=== PATIENT | male | born 1950 | race Caucasian/White ===

== ENCOUNTER 2016-12-09 10:31 | Inpatient (IN) | payer BC, OTHER ==
--- NOTE | 2016-12-09 10:34 | EDPHY ---
H & P Time Seen by Provider: 12/09/16 10:34 - Personal History Tetanus Vaccine Date: >10 YRS - Medical/Surgical History Hx Diabetes: No Other PMH: vasovagal syndrome w/pain. BPH - Social History Smoking Status: Never smoked Constitutional: Initial Vital Signs Temperature (C) 36.3 C 12/09/16 10:39 Heart Rate 75 12/09/16 10:39 Respiratory Rate 18 12/09/16 10:39 Blood Pressure 139/98 H 12/09/16 10:39 O2 Sat (%) 93 12/09/16 10:39 O2 Delivery Mode Nasal Cannula O2 (L/minute) 2 Allergies/Adverse Reactions: Penicillins Allergy (Mild, Verified 11/01/16 10:10) Rash Home Medications: Medication Instructions Recorded Aspirin [Aspirin 81mg (*)] 81 mg PO DAILY 12/09/16 Gabapentin [Neurontin 300 MG (*)] 300 mg PO TID 12/09/16 Hydrocodone/Acetaminophen 1 each PO Q4-6PRN PRN 12/09/16 [Hydrocodon-Acetaminoph 7.5-325] Ibuprofen [Motrin (*)] 600 mg PO Q4-6PRN PRN 12/09/16 Multivitamins [Multivitamin (*)] 1 each PO DAILY 12/09/16 Tamsulosin HCl [Flomax 0.4 MG (*)] 0.8 mg PO DAILY 12/09/16 Medical Decision Making ED Course/Re-evaluation: CHIEF COMPLAINT: Back pain, leg pain. HISTORY OF PRESENT ILLNESS: This is a 66-year-old male status post L5 cyst drainage by interventional radiology presenting via EMS. He was placed on Gabapentin and Vicodin after the procedure. He was initially able to walk on his own pain-free for 5 minutes at a time before the pain became too intense down his left leg. He describes the pain as being in his buttock, posterior knee , and foot. He was initially getting better but starting yesterday, the pain became constant without the normal relief he was usually able to get. He denies fever, chills, incontinence, or other complaints. REVIEW OF SYSTEMS: A 10 point review of systems was performed and is negative with the exception of the elements mentioned in the history of present illness. PHYSICAL EXAM: HR, BP, O2 Sat, RR. Temp noted General Appearance: Alert, well hydrated, appropriate, and non-toxic appearing. Head: Atraumatic without scalp tenderness or obvious injury Eyes: Pupils equal, round, reactive to light and accommodation, EOMI, no trauma , no injection. Ears: Clear bilaterally, no perforation, normal landmarks Nose: Atraumatic, no rhinorrhea, clear. Throat: There is no erythema or exudates, no lesions, normal tonsils, mucus membranes moist. Neck: Supple, 2+ carotid upstroke, nontender, no lymphadenopathy. Respiratory: No retractions, no distress, no wheezes, and no accessory muscle use. Lungs are clear to auscultation bilaterally. Cardiovascular: Regular rate and rhythm, no murmurs, rubs, or gallops. Bilateral carotid, radial, dorsalis pedis, and posterior tibial pulses intact. Good capillary refill all extremities. Gastrointestinal: Abdomen is soft, nontender, non-distended, no masses, no rebound, no guarding, no peritoneal signs. Musculoskeletal: Normal active ROM of all extremities, atraumatic. Neurological: Alert, appropriate, and interactive. The patient has normal DTRs and non-focal cranial nerves, motor, sensory, and cerebellar exam. Skin: No rashes, good turgor, no nodules on palpation. Past medical history:Synovial cyst of lumbar spine. Past surgical history:L5 cyst drainage. Family history:Non-contributory. Social history:Here alone. DIAGNOSTICS/PROCEDURES/CRITICAL CARE TIME: Study: MRI of the: L-Spine. Indication: Neurologic, Trauma Results: Return of synovial cyst. The study was read by the radiologist. I viewed the images myself on the PACS system. The 12 lead EKG was interpreted by myself. See hard copy and/or "tracemaster" electronic copy for interpretation. Sinus rhythm, no acute changes. DIFFERENTIAL DIAGNOSIS: The differential diagnosis for the patient's back pain included but was not limited to musculo-skeletal pain, epidural abscess, herniated disk, spinal fracture, and intra-abdominal causes including urinary system. MEDICAL DECISION MAKING: This 66-year-old male is status post an L5 cyst drainage by Dr. Ma a few days ago. His pain was initially getting better but became constant yesterday. This is associated with a pain down his left leg he describes as being in his buttock , knee, and foot. He has no fevers or chills to indicate systemwide infection. L -spine MRI ordered to rule-out reemergence of the cyst or infection. 1230: MRI reported to me by staff radiologist shows a return of the synovial cyst. 1233: Consulted with Dr. Hernandez, neurosurgery. He will operate on the cyst if the patient wants, or IR can drain it again. I discussed this with the patient. He would like to be admitted for surgery. Preoperative labs, EKG, and chest x- ray ordered. 1259: Consulted with Antoinette Ibanez, hospitalist. She accepts admission for Dr. Murray. - Data Points Laboratory Results: Laboratory Results 12/09/16 12:01 12/09/16 10:30 12/09/16 12/09/16 12:01 10:30 WBC 7.90 10^3/uL (3.80-9.50) RBC 5.23 10^6/uL (4.40-6.38) Hgb 16.4 g/dL (13.7-17.5) Hct 48.6 % (40.0-51.0) MCV 92.9 fL (81.5-99.8) MCH 31.4 pg (27.9-34.1) MCHC 33.7 g/dL (32.4-36.7) RDW 12.1 % (11.5-15.2) Plt Count 242 10^3/uL (150-400) MPV 10.5 fL (8.7-11.7) Neut % (Auto) 61.5 % (39.3-74.2) Lymph % (Auto) 25.1 % (15.0-45.0) [place] % (Auto) 10.3 % (4.5-13.0) Eos % (Auto) 2.3 % (0.6-7.6) Baso % (Auto) 0.5 % (0.3-1.7) Nucleat RBC Rel Count 0.0 % (0.0-0.2) Absolute Neuts (auto) 4.87 10^3/uL (1.70-6.50) Absolute Lymphs (auto) 1.98 10^3/uL (1.00-3.00) Absolute Monos (auto) 0.81 H 10^3/uL (0.30-0.80) Absolute Eos (auto) 0.18 10^3/uL (0.03-0.40) Absolute Basos (auto) 0.04 10^3/uL (0.02-0.10) Absolute Nucleated RBC 0.00 10^3/uL (0-0.01) Immature Gran % 0.3 % (0.0-1.1) Immature Gran # 0.02 10^3/uL (0.00-0.10) PT 12.8 SEC (12.0-15.0) INR 0.97 (0.83-1.16) APTT 26.9 SEC (23.0-38.0) Sodium 140 mEq/L (134-144) Potassium 4.6 mEq/L (3.5-5.2) Chloride 108 mEq/L (97-110) Carbon Dioxide 26 mEq/l (22-31) Anion Gap 6 mEq/L (8-16) BUN 26 H mg/dL (7-23) Creatinine 0.9 mg/dL (0.7-1.3) Estimated GFR > 60 Glucose 91 mg/dL (70-100) Calcium 9.1 mg/dL (8.5-10.4) Medications Given: Discontinued Medications Fentanyl (Sublimaze) 100 mcg IVP ONCE ONE Stop: 12/09/16 12:16 Last Admin: 12/09/16 12:30 Dose: 100 mcg Ondansetron HCl (Zofran) 4 mg IVP EDNOW ONE Stop: 12/09/16 12:30 Last Admin: 12/09/16 12:31 Dose: 4 mg Departure - Departure Disposition: [facility] Acute Clinical Impression: Synovial cyst of lumbar spine Condition: Fair Report Scribed for: Derik Cornejo Report Scribed by: Dexter Elkins Date of Report: 12/09/16 Time of Report: 10:49
[2016-12-09] MEDS ORDERED: GADOBUTROL 10 ML VIAL IVP ONE (10:59)
[2016-12-09 11:42] LABS: ANION GAP 6 mEq/L (8-16); CALCIUM 9.1 mg/dL (8.5-10.4); CARBON DIOXIDE 26 mEq/l (22-31); CHLORIDE 108 mEq/L (97-110); CREATININE 0.9 mg/dL (0.7-1.3); GLOMERULAR FILTRATION RATE > 60; GLUCOSE 91 mg/dL (70-100); POTASSIUM 4.6 mEq/L (3.5-5.2); SODIUM 140 mEq/L (134-144)
[2016-12-09] MEDS ORDERED: fentaNYL 100 MCG/2 ML INJ IVP ONE (12:15)
[2016-12-09] MEDS ORDERED: ONDANSETRON 4 MG/2 ML VIAL ONE ×2 (12:20→16:46)
[2016-12-09] MEDS ORDERED: ONDANSETRON 4 MG/2 ML VIAL IVP ONE ×2 (12:29→16:53)
[2016-12-09 12:52] LABS: % IMMATURE GRANULYOCYTES 0.3 % (0.0-1.1); ABSOLUTE IMMATURE GRANULOCYTES 0.02 10^3/uL (0.00-0.10); ADD DIFF? NO; ADD MORPH? NO; ADD SCAN? NO; ATYPICAL LYMPHOCYTE FLAG 0 (0-99); FRAGMENT RBC FLAG 0 (0-99); HEMATOCRIT 48.6 % (40.0-51.0); HEMOGLOBIN 16.4 g/dL (13.7-17.5); LEFT SHIFT FLG 0 (0-99); LIPEMIA HEMOLYSIS FLAG 80 (0-99); MEAN CELL HEMOGLOBIN 31.4 pg (27.9-34.1); MEAN CELL HEMOGLOBIN CONCENTR. 33.7 g/dL (32.4-36.7); MEAN CELL VOLUME 92.9 fL (81.5-99.8); MEAN PLATELET VOLUME 10.5 fL (8.7-11.7); PLATELET CLUMPS FLAG 0 (0-99); PLATELET COUNT 242 10^3/uL (150-400); RED BLOOD CELL COUNT 5.23 10^6/uL (4.40-6.38); RED CELL DISTRIBUTION WIDTH 12.1 % (11.5-15.2)
[2016-12-09 12:56] LABS: INR 0.97 (0.83-1.16); PROTIME(PATIENT) 12.8 SEC (12.0-15.0)
[2016-12-09 12:57] LABS: APTT 26.9 SEC (23.0-38.0)
--- NOTE | 2016-12-09 13:13 | CPEKG ---
Heart Rate: 66 RR Interval: 909 P-R Interval: 172 QRSD Interval: 88 QT Interval: 428 QTC Interval: 449 P Whitfield: 57 QRS Whitfield: -58 T Wave Whitfield: 25 EKG Severity - ABNORMAL ECG - EKG Impression: SINUS RHYTHM EKG Impression: PROBABLE LEFT ATRIAL ABNORMALITY EKG Impression: LEFT ANTERIOR FASCICULAR BLOCK Electronically Signed By: Derik Cornejo 09-Dec-2016 13:33:18
[2016-12-09] MEDS ORDERED: HYDROmorphONE/DILAUDID 1 MG/ML SYR ONE (13:44)
--- NOTE | 2016-12-09 13:52 | MR ---
MRI Lumbar Spine Without and With Contrast History: Back pain. Left radiculopathy. History of synovial cyst aspiration and corticosteroid inject ion. Comparison: Injection 10 November 2016. MRI November 01, 2016. Technique: MRI is performed of the lumbar spine using a 1.5 Rima MRI system. Sagittal and axial imag ing was obtained with standard imaging sequences. Images were obtained pre- and postintravenous contr ast, 9 mL Gadavist. Findings: No significant bone marrow abnormality is visualized. No evidence for compression fracture. Disk heights are maintained. Conus is visualized at L1 and is unremarkable. No evidence of abnormal enhancement of the conus or cauda equina. Incidental note is made of a renal cortical cyst off the inferior pole of the right kidney measuring 2 cm. L1-L2 level unremarkable. L2-L3 level demonstrates a mild broad-based annular bulge causing mild spinal canal and bilateral jeffrey ral foraminal narrowing. No significant change. L3-L4 level demonstrates a mild broad-based annular bulge. Mild facet and ligamentum flavum hypertrop hy is seen bilaterally. This is causing mild spinal canal and mild bilateral neural foraminal narrowi ng, unchanged. L4-L5 level demonstrates a mild broad-based annular bulge. Moderate facet arthropathy is seen bilater ally, more severe on the left. There is bone marrow edema and fluid distention and pericapsular enhan cement of the left facet joint. Extending from the left facet joint is a synovial cyst extending slig htly caudally into the medial aspect of the left neural foramen compressing the L5 nerve root. It is similar in size and appearance to the prior exam. There is mild bilateral lateral recess narrowing an d mild bilateral neural foraminal narrowing, unchanged. L5-S1 level demonstrates mild facet arthropathy causing no significant encroachment. Impression: Multilevel degenerative disk and degenerative joint disease of the lumbar spine. The most significant level is L4-L5 where there is more severe facet arthropathy on the left with a synovial cyst extending to the medial aspect of the left neural foramen compressing the L5 nerve root as above . Results called to Dr. Derik Cornejo.
--- NOTE | 2016-12-09 14:11 | DX ---
AP and lateral chest x-ray 1230 hours. History: Chest pain with shortness of breath. Recent lumbar procedure. Findings: Comparison to January 02, 2012. Heart size and pulmonary vasculature remain within normal limits. There is no consolidation, effusion , or pneumothorax. There is poor inspiration with mild dependent atelectatic changes are suspected at the lung bases posteriorly. Osseous structures are unchanged. Mild atherosclerotic calcification is noted at the aortic arch level. Impression: 1. Mild dependent atelectatic changes suspected at the lung bases posteriorly.
[2016-12-09] MEDS ORDERED: HYDROmorphONE/DILAUDID 1 MG/ML SYR IVP ONE ×2 (14:15→16:44)
[2016-12-09] MEDS ORDERED: NS 1,000 ML IV ONE (17:05)
[2016-12-09] MEDS ORDERED: HYDROmorphONE/DILAUDID 1 MG/ML SYR IVP PRN (17:07)
[2016-12-09] MEDS ORDERED: LORazepam 0.5 MG TAB PO PRN (17:07)
[2016-12-09] MEDS ORDERED: ACETAMINOPHEN 325 MG TAB PO PRN (17:07)
[2016-12-09] MEDS ORDERED: oxyCODONE IR 5 MG TAB PO PRN (17:07)
[2016-12-09] MEDS ORDERED: IBUPROFEN 200 MG TAB PO PRN (17:09)
[2016-12-09] MEDS ORDERED: NS 1,000 ML IV SCH (17:15)
--- NOTE | 2016-12-09 17:17 | PDGENHP ---
History and Physical - Chief Complaint back and leg pain - History of Present Illness 66 yo M with PMH of L5 synovial cyst s/p drainage by IR returning with increased pain present in buttocks and radiating down his left leg, limiting his ability to walk. Pain is severe, worse with ambulation, not alleviated by much of anything at this point and essentially constant. MRI performed in the ER showing synovial cyst affecting L5 nerve root. Plan for nsg intervention in am and pain mgmt overnight tonight. No other issues including bowel or bladder incontinence, fever or chills etc. History Information - Allergies/Home Medication List Allergies/Adverse Reactions: Penicillins Allergy (Mild, Verified 11/01/16 10:10) Rash Home Medications: Aspirin [Aspirin 81mg (*)] 81 mg PO DAILY 12/09/16 [Last Taken 12/08/16] Gabapentin [Neurontin 300 MG (*)] 300 mg PO TID 12/09/16 [Last Taken 12/09/16 07 :30 1 CAP] Hydrocodone/Acetaminophen [Hydrocodon-Acetaminoph 7.5-325] 1 each PO Q4-6PRN PRN 12/09/16 [Last Taken 12/09/16 07:30 1 TAB] Ibuprofen [Motrin (*)] 600 mg PO Q4-6PRN PRN 12/09/16 [Last Taken 12/09/16 06: 30 600MG] Multivitamins [Multivitamin (*)] 1 each PO DAILY 12/09/16 [Last Taken Unknown] Tamsulosin HCl [Flomax 0.4 MG (*)] 0.8 mg PO DAILY 12/09/16 [Last Taken Unknown] I have personally reviewed and updated: family history, medical history, social history, surgical history - Past Medical History Additional medical history: BPH - Surgical History Additional surgical history: shoulder, knee, elbow, neck surgery - Family History Positive for: non-pertinent - Social History Smoking Status: Never smoked Alcohol Use: Occasionally Drug Use: None Additional social history: Review of Systems ROS: 10pt was reviewed & negative except for what was stated in HPI & below Physical Exam Temp Pulse Resp BP Pulse Ox 36.3 C 66 18 126/78 H 96 12/09/16 10:39 12/09/16 17:00 12/09/16 17:00 12/09/16 17:00 12/09/16 17:00 O2 (L/minute) 2 Constitutional: appears nourished, uncomfortable Eyes: PERRL Ears, Nose, Mouth, Throat: moist mucous membranes Cardiovascular: regular rate and rhythym, no murmur, rub, or gallop Respiratory: no respiratory distress Gastrointestinal: normoactive bowel sounds Genitourinary: no bladder fullness Skin: warm, normal color Neurologic: AAOx3 Psychiatric: interacting appropriately, not anxious Lab Data & Imaging Review 12/09/16 12:01 12/09/16 10:30 WBC 7.90 10^3/uL (3.80-9.50) 12/09/16 12:01 RBC 5.23 10^6/uL (4.40-6.38) 12/09/16 12:01 Hgb 16.4 g/dL (13.7-17.5) 12/09/16 12:01 Hct 48.6 % (40.0-51.0) 12/09/16 12:01 MCV 92.9 fL (81.5-99.8) 12/09/16 12:01 MCH 31.4 pg (27.9-34.1) 12/09/16 12:01 MCHC 33.7 g/dL (32.4-36.7) 12/09/16 12:01 RDW 12.1 % (11.5-15.2) 12/09/16 12:01 Plt Count 242 10^3/uL (150-400) 12/09/16 12:01 MPV 10.5 fL (8.7-11.7) 12/09/16 12:01 Neut % (Auto) 61.5 % (39.3-74.2) 12/09/16 12:01 Lymph % (Auto) 25.1 % (15.0-45.0) 12/09/16 12:01 [place] % (Auto) 10.3 % (4.5-13.0) 12/09/16 12:01 Eos % (Auto) 2.3 % (0.6-7.6) 12/09/16 12:01 Baso % (Auto) 0.5 % (0.3-1.7) 12/09/16 12:01 Nucleat RBC Rel Count 0.0 % (0.0-0.2) 12/09/16 12:01 Absolute Neuts (auto) 4.87 10^3/uL (1.70-6.50) 12/09/16 12:01 Absolute Lymphs (auto) 1.98 10^3/uL (1.00-3.00) 12/09/16 12:01 Absolute Monos (auto) 0.81 10^3/uL (0.30-0.80) H 12/09/16 12:01 Absolute Eos (auto) 0.18 10^3/uL (0.03-0.40) 12/09/16 12:01 Absolute Basos (auto) 0.04 10^3/uL (0.02-0.10) 12/09/16 12:01 Absolute Nucleated RBC 0.00 10^3/uL (0-0.01) 12/09/16 12:01 Immature Gran % 0.3 % (0.0-1.1) 12/09/16 12:01 Immature Gran # 0.02 10^3/uL (0.00-0.10) 12/09/16 12:01 PT 12.8 SEC (12.0-15.0) 12/09/16 12:01 INR 0.97 (0.83-1.16) 12/09/16 12:01 APTT 26.9 SEC (23.0-38.0) 12/09/16 12:01 Sodium 140 mEq/L (134-144) 12/09/16 10:30 Potassium 4.6 mEq/L (3.5-5.2) 12/09/16 10:30 Chloride 108 mEq/L (97-110) 12/09/16 10:30 Carbon Dioxide 26 mEq/l (22-31) 12/09/16 10:30 Anion Gap 6 mEq/L (8-16) 12/09/16 10:30 BUN 26 mg/dL (7-23) H 12/09/16 10:30 Creatinine 0.9 mg/dL (0.7-1.3) 12/09/16 10:30 Estimated GFR > 60 12/09/16 10:30 Glucose 91 mg/dL (70-100) 12/09/16 10:30 Calcium 9.1 mg/dL (8.5-10.4) 12/09/16 10:30 Visualized and Interpreted Chest x-ray results: Yes Chest X-Ray results: no infiltrate, other (mild dependent atelectasis) Visualized and Interpreted imaging results: Yes Interpretation: lumbar spine MRI with synovial cyst compressing l5 nerve root Visualized and Interpreted EKG results: Yes EKG Interpretation: Positive for: normal sinsus rhythm EKG additional interpertation: lafb Assessment & Plan Assessment: Synovial cyst of lumbar spine (Acute) 66 yo M with recent injection for synovial cyst presenting with lumbar radiculopathy # lumbar radiculopathy: related to synovial cyst impinging on L5 nerve root, NSG to intervene in am. For tonight, pain mgmt with prn opiates and benzos. PT/ OT to be involved. # gait instability: related to above, tx as above, ambulate with assist for now # bph: continue tamsulosin # pain: as above, prn dilaudid, oxycodone, valium # dispo: observation, likely can dc home in am Patient new to my care. Old records reviewed and summarized as above.
[2016-12-09] MEDS: HYDROCODONE/APAP 10/325 TAB PO PRN (17:59)
[2016-12-09] MEDS: HYDROmorphONE/DILAUDID 1 MG/ML SYR IVP PRN ×2 (18:24→21:12)
[2016-12-09] MEDS: oxyCODONE IR 5 MG TAB PO PRN (20:16)
--- NOTE | 2016-12-09 20:16 | GCON ---
[f rep st] CONSULTATION HISTORY OF PRESENT ILLNESS: The patient is a 66-year-old male who presents to the ED for severe pain in his left buttock, shooting down his left lateral and posterior leg, sometimes extending down arou nd his anterior left villa and into his second and third toes. The pain has been ongoing for quite a while, which has become more severe recently. He has been seen in our clinic in the past, has been d iagnosed with lumbar degenerative disk disease and an L5 nerve compression by synovial cyst coming of f the L4-5 facet joint on the left. The patient initially had a cyst drained at the end of October but gradually his symptoms have returned and have become so severe that they are not managed by his h ome medications; therefore, he presented here in the ER for pain control. An MRI reviewed showed ret urn of the cyst and continued nerve root compression of the L5 nerve. PAST MEDICAL HISTORY: Includes urinary retention. PAST SURGICAL HISTORY: Includes prior cervical back surgery in 2011, recent gallbladder removal. FAMILY HISTORY: Degenerative spine disease. Father had heart disease. SOCIAL HISTORY: The patient lives with his . He has a 27-year-old son. He is retired. He is a [employer] avid golfer. The patient does not use tobacco. He drinks 1-2 drinks a day. He uses marijuana for pain control. MEDICATIONS: Patient takes daily baby aspirin, multivitamins, Flomax, and ibuprofen regularly. Rece ntly, he has also been taking Gatzke and edible marijuana for pain control. ALLERGIES: Mild rash to penicillin. REVIEW OF SYSTEMS: Negative except as stated above. PHYSICAL EXAMINATION: NEUROLOGIC: The patient is alert and oriented x3. He is currently in no appa rent distress. His cranial nerves are grossly intact. Motor strength on his bilateral lower extremi ties is 5/5 throughout except extensor hallucis longus 4/5 on the left side. His sensation is intact to light touch throughout. He has no deficiency to balance or gait. LABORATORY DATA: Repeat MRI from today shows multilevel degenerative disk and degenerative joint dis ease, particularly at the L4-L5 level of facet arthropathy is noted with a left synovial cyst saeed sing the L5 nerve root. ASSESSMENT/PLAN: A healthy 66-year-old male with degenerative disk disease, L5 nerve root compressio n on the left and neuropathy. The patient has been seen at our clinic and has been treated conservat ively with the synovial cyst drainage in the past and he has failed this. At this point, given his l evel of pain, the patient is requesting spine surgery for fusion and removal of the cyst. Dr. Hernandez' s plan is to evaluate the patient and tentatively schedule him for the OR tomorrow for an L4-5 TLIF a nd fusion. The patient will be admitted to the medicine service for pain control until that time. T he patient may be given a regular diet but should be made n.p.o. After midnight. He should not recei ve any more NSAIDs and his aspirin should be held tomorrow. In addition, I would recommend placing t he patient in SCDs and holding DVT prophylaxis until postop day 1. /[id number]/MODL
[2016-12-09] MEDS: GABAPENTIN 300 MG CAP PO SCH (21:12)
[2016-12-09] MEDS: ONDANSETRON 4 MG/2 ML VIAL IVP PRN (21:19)
[2016-12-09] MEDS: PROMETHAZINE HCL 25 MG/ML INJ IVP PRN (22:54)
[2016-12-10] MEDS: HYDROmorphONE/DILAUDID 1 MG/ML SYR IVP PRN ×2 (02:13→13:05)
[2016-12-10] MEDS: HYDROCODONE/APAP 10/325 TAB PO PRN (02:13)
[2016-12-10] MEDS ORDERED: THROMBIN (RECOMBINANT) 5,000 UNIT VIAL TP ONE (04:11)
[2016-12-10] MEDS ORDERED: BACITRACIN 50,000 UNITS/10 ML SYR IRR ONE (04:11)
[2016-12-10] MEDS ORDERED: SKIN ADHESIVE (DERMABOND) 1 EACH TP ONE (04:11)
[2016-12-10] MEDS ORDERED: BUPIVACAINE/EPI 0.25% 30 ML SDV ONE (04:11)
[2016-12-10 04:59] LABS: % IMMATURE GRANULYOCYTES 0.1 % (0.0-1.1); ABSOLUTE IMMATURE GRANULOCYTES 0.01 10^3/uL (0.00-0.10); ADD DIFF? NO; ADD MORPH? NO; ADD SCAN? NO; ATYPICAL LYMPHOCYTE FLAG 0 (0-99); FRAGMENT RBC FLAG 0 (0-99); HEMATOCRIT 45.4 % (40.0-51.0); HEMOGLOBIN 15.3 g/dL (13.7-17.5); LEFT SHIFT FLG 0 (0-99); LIPEMIA HEMOLYSIS FLAG 80 (0-99); MEAN CELL HEMOGLOBIN 32.3 pg (27.9-34.1); MEAN CELL HEMOGLOBIN CONCENTR. 33.7 g/dL (32.4-36.7); MEAN CELL VOLUME 95.8 fL (81.5-99.8); MEAN PLATELET VOLUME 10.1 fL (8.7-11.7); PLATELET CLUMPS FLAG 0 (0-99); PLATELET COUNT 229 10^3/uL (150-400); RED BLOOD CELL COUNT 4.74 10^6/uL (4.40-6.38); RED CELL DISTRIBUTION WIDTH 12.2 % (11.5-15.2)
[2016-12-10 05:18] LABS: ANION GAP 7 mEq/L (8-16); CALCIUM 8.9 mg/dL (8.5-10.4); CARBON DIOXIDE 26 mEq/l (22-31); CHLORIDE 106 mEq/L (97-110); CREATININE 0.8 mg/dL (0.7-1.3); GLOMERULAR FILTRATION RATE > 60; GLUCOSE 105 mg/dL (70-100); POTASSIUM 4.6 mEq/L (3.5-5.2); SODIUM 139 mEq/L (134-144)
[2016-12-10] MEDS ORDERED: fentaNYL 100 MCG/2 ML INJ ONE ×2 (07:49→12:01)
[2016-12-10] MEDS ORDERED: fentaNYL 250 MCG/5 ML INJ ONE (07:53)
[2016-12-10] MEDS ORDERED: PROPOFOL/EMULSION 500 MG/50 ML BOTTLE IV ONE ×2 (07:53)
[2016-12-10] MEDS ORDERED: CEFAZOLIN 2 GM/DEXTROSE/100 ML BAG IV ONE (07:59)
[2016-12-10] MEDS ORDERED: ALBUMIN 5% 250 ML BOTTLE IV ONE (08:06)
[2016-12-10] MEDS ORDERED: MIDAZOLAM 2 MG/2 ML VIAL ONE (08:09)
[2016-12-10] MEDS ORDERED: methylPREDNISolone SOD SUCC 125 MG/2 ML VIAL ONE (08:10)
[2016-12-10] MEDS ORDERED: ONDANSETRON 4 MG/2 ML VIAL ONE (08:10)
[2016-12-10] MEDS ORDERED: ROCURONIUM 50 MG/5 ML VIAL ONE ×2 (08:10→09:12)
[2016-12-10] MEDS ORDERED: GLYCOPYRROLATE 0.2 MG/1 ML VIAL ONE (08:10)
[2016-12-10] MEDS ORDERED: METOCLOPRAMIDE 10 MG/2 ML VIAL ONE (08:10)
[2016-12-10] MEDS: MULTIVITAMINS 1 EACH TAB PO SCH (08:56)
[2016-12-10] MEDS: TAMSULOSIN HCL 0.4 MG CAP PO SCH ×2 (08:57→16:10)
[2016-12-10] MEDS ORDERED: DIAZEPAM 10 MG/2 ML SYR ONE (09:01)
[2016-12-10] MEDS ORDERED: morphINE PF 5 MG/10 ML INJ ONE (09:06)
[2016-12-10] MEDS ORDERED: CALCIUM CHLORIDE 1 GM/10 ML INJ ONE (09:14)
[2016-12-10] MEDS ORDERED: NEOSTIGMINE METHYLSULFATE 5 MG/5 ML SYR ONE (09:24)
[2016-12-10] MEDS ORDERED: epHEDrine SULFATE 10 MG/ML SYR ONE ×2 (11:04)
[2016-12-10] MEDS: GABAPENTIN 300 MG CAP PO SCH ×3 (11:34→20:35)
--- NOTE | 2016-12-10 11:50 | POSTOPPROG ---
Post Op Note Date of Operation: 12/10/16 Surgeon: Darren Hernandez Director Of Religious Activities: MCKINLEY Moss, PAC Anesthesia: GET(General Endotracheal) Pre-op Diagnosis: lumbar radiculopathy, synovial cyst Post-op Diagnosis: lumbar radiculopathy, synovial cyst Indication: lumbar radiculopathy, synovial cyst Procedure: Right L4/5 synovial cyst resection, TLIF/PSF Inf/Abcess present in the surg proc area at time of surgery?: No EBL: 200cc Drains: Yohana PINTO Addendum - Addendum .: S: Low back pain O: NAD A&Ox3 MAEx4 5/ and equal in BUE and BLE Plan: -Optimize pain management -PT/OT -DVT prophx: TEDs, SCDs, Lovenox okay POD#1 -Post op xrays pending -Advance diet as tolerated -Please notify NS with any change in neuro/motor exam
[2016-12-10] MEDS ORDERED: DIAZEPAM 10 MG/2 ML SYR IVP PRN (11:51)
[2016-12-10] MEDS ORDERED: LACTULOSE 20 GM/30 ML UDCUP PO PRN (11:51)
[2016-12-10] MEDS ORDERED: MAGNESIUM HYDROXIDE 30 ML UDCUP PO PRN (11:51)
[2016-12-10] MEDS ORDERED: DIAZEPAM 5 MG TAB PO PRN (11:51)
[2016-12-10] MEDS ORDERED: BISACODYL 10 MG SUPP PR PRN (11:51)
[2016-12-10] MEDS ORDERED: morphINE PF 5 MG/10 ML INJ IT ONE (12:00)
[2016-12-10] MEDS ORDERED: morphINE PF 1 MG/2 ML AMP IT ONE (12:00)
--- NOTE | 2016-12-10 12:16 | DX ---
Fluoroscopy Provided for Lumbar Spine Surgery, 8:14 a.m. Indication: Lumbar cyst removal. Fluoroscopy time: 8.37 seconds. Dose: 18.17 mGy Two O-arm spins were utilized yielding 219.62 DLP( mGycm). Technique: Two intraoperative spot films were submitted. Findings: New posterior fusion construct extends from L4 to L5. Impression: Fluoroscopy provided for lumbar spine fusion.
[2016-12-10] MEDS: NS W/ 20 KCl/L 1,000 ML IV SCH (13:13)
[2016-12-10] MEDS ORDERED: PROPARACAINE 0.5% 15 ML OPHT DROP EACHEYE ONE (13:45)
--- NOTE | 2016-12-10 16:42 | HOSPPROG ---
Hospitalist Progress Note Assessment/Plan: Assessment: 66-year-old male presenting with synovial cyst resulting in acute lumbar radiculopathy requiring surgery Plan: 1. Synovial cyst with lumbar radiculopathy. Acute, postop day 0 status post TLIF/PSF by Dr. Hernandez -MRI demonstrated L4-L5 with left nerve root impingement -postoperative weight-bearing status and care under the direction neurosurgery -continue pain medications and bowel regimen 2. Eye pain. Acute, most likely secondary to direct trauma sustained in PACU with patient rubbing his eye as he awakened from anesthesia -I have discussed with patient's anesthesiologist and she has recommended lubricant, topical lidocaine, eye patch -I will reassess this area tomorrow a.m. -the area does not demonstrate any evidence of orbital cellulitis or acute closed angle glaucoma on physical exam 3. BPH. Monitor for urine output Diet. Regular Prophylaxis. High risk patient, hold on pharmacologic prophylaxis until 48 hours after surgery Code. Full Disposition. Anticipated discharge is 12/11/2016, upgraded to inpatient admission status for neurosurgical procedure requiring postoperative care, complicated by acute eye pain. Subjective: Patient reports right-sided eye pain Objective: Vital Signs Temp Pulse Resp BP Pulse Ox 36.8 C 84 18 116/68 94 12/10/16 14:18 12/10/16 14:18 12/10/16 14:18 12/10/16 14:18 12/10/16 14:18 12/09/16 12/10/16 12/11/16 05:59 05:59 05:59 Intake Total 750 Output Total 200 Balance 550 PT 12.8 SEC (12.0-15.0) 12/09/16 12:01 INR 0.97 (0.83-1.16) 12/09/16 12:01 - Time Spent With Patient Time Spent with Patient: greater than 35 minutes Time Spent with Patient: Greater than 35 minutes spent on this patients care, greater than 50% of time spent counseling, educating, and coordinating care regarding the above mentioned plan. - Physical Exam Constitutional: no apparent distress, uncomfortable, No not in pain Eyes: other (Right eye has a small capillary hemorrhage along the inferior aspect of the iris, pupil size is normal and symmetric with left comma extraocular movements are completely intact without pain, there is no erythema around the eyelid where the orbit, visual acuity is good and is intact in all visual hanna) Ears, Nose, Mouth, Throat: moist mucous membranes, hearing normal, ears appear normal, no oral mucosal ulcers Cardiovascular: regular rate and rhythym, no murmur, rub, or gallop Respiratory: no respiratory distress, no rales or rhonchi, clear to auscultation Gastrointestinal: normoactive bowel sounds, soft, non-tender abdomen, no palpable masses Neurologic: AAOx3, sensation intact bilaterally Psychiatric: interacting appropriately, not anxious, not encephalopathic, thought process linear ICD10 Worksheet Patient Problems: Problems Problem Status Diagnosed Synovial cyst of lumbar spine Acute
[2016-12-10] MEDS: SENNOSIDES/DOCUSATE SODIUM TAB PO SCH (20:34)
[2016-12-10] MEDS: FAMOTIDINE 20 MG TAB PO SCH (20:35)
[2016-12-10] MEDS ORDERED: FAMOTIDINE 20 MG/NACL 50 ML IV SCH (21:00)
[2016-12-10] MEDS: ONDANSETRON DISINTEGRATING 4 MG TAB PO PRN (22:04)
[2016-12-11] MEDS: ZOLPIDEM TARTRATE 5 MG TAB PO PRN ×2 (01:04→22:47)
[2016-12-11] MEDS ORDERED: FLU VACC TS 2016-17(65YR+)/PF 0.5 ML SYR (FLUZONE HIGH DOSE) IM ONE (05:21)
[2016-12-11] MEDS: HYDROCODONE/APAP 10/325 TAB PO PRN (05:24)
[2016-12-11] MEDS: ACETAMINOPHEN 325 MG TAB PO PRN ×2 (05:24→10:10)
[2016-12-11] MEDS: ONDANSETRON DISINTEGRATING 4 MG TAB PO PRN ×2 (06:10→20:53)
[2016-12-11] MEDS: HYDROmorphONE/DILAUDID 1 MG/ML SYR IVP PRN ×2 (06:58→09:32)
[2016-12-11] MEDS: ONDANSETRON 4 MG/2 ML VIAL IVP PRN (09:24)
[2016-12-11] MEDS: oxyCODONE IR 5 MG TAB PO PRN (10:12)
[2016-12-11] MEDS: TAMSULOSIN HCL 0.4 MG CAP PO SCH (10:13)
[2016-12-11] MEDS: GABAPENTIN 300 MG CAP PO SCH ×3 (10:14→20:48)
[2016-12-11] MEDS: FAMOTIDINE 20 MG TAB PO SCH ×2 (10:14→20:48)
[2016-12-11] MEDS: PROMETHAZINE HCL 25 MG/ML INJ IVP PRN (10:18)
[2016-12-11] MEDS: MULTIVITAMINS 1 EACH TAB PO SCH (10:29)
[2016-12-11] MEDS: SENNOSIDES/DOCUSATE SODIUM TAB PO SCH ×2 (10:29→20:47)
[2016-12-11] MEDS: NS W/ 20 KCl/L 1,000 ML IV SCH (10:47)
--- NOTE | 2016-12-11 10:52 | NEUSURGPN ---
Date of Surgery: 12/10/16 Post Op Day: 1 Assessment/Plan: POD#1 s/p L4-5 TLIF - overall doing well, left leg pain is gone - has had back pain, nausea, and urinary retention (BPH) - had significant eye pain yesterday and thought to have a corneal abrasion, pain is better today - will give two days of celebrex to help with pain control (he should NOT be discharged on this) - LSO brace when ambulating - PT/OT - standing lumbar xrays today - anticipate possible discharge tomorrow Subjective: c/o back pain and headache Objective: AAOx3 leg strength 5/5 at HF, KF/KE, PF/DF wound c/d/i - Physician Patient Seen by : Mary Neurosurgery Physical Exam - Vitals, I&O, Labs I and O 12/10/16 12/11/16 12/12/16 05:59 05:59 05:59 Intake Total 1750 100 Output Total 1700 550 Balance 50 -450 Intake: Oral (ml) 1000 100 IV Intake (ml) 200 IV Infused (ml) 550 Ns 1,000 ml @ 100 mls/hr 50 IV CONT TEDDY Rx#: [id number] NS W/ 20 KCl/L 1,000 ml @ 500 75 mls/hr IV CONT TEDDY Rx #:[id number] Output: Urine (ml) 1350 550 Urinal 600 550 Catheter 750 Estimated Blood Loss (ml) 200 Emesis (ml) 150 Other: Intake Quantity Yes No Sufficient Output Comment Catheter straight cath Number of Voids Urinal 1 1 Bladder Scan Volume (ml) Catheter 705 Number of Emesis 1 Occurrences Vital Signs Temp Pulse Resp BP Pulse Ox 36.8 C 99 20 132/74 H 96 12/11/16 08:00 12/11/16 08:00 12/11/16 08:00 12/11/16 08:00 12/11/16 08:00 ICD10 Worksheet Patient Problems: Problems Problem Status Diagnosed Synovial cyst of lumbar spine Acute
[2016-12-11] MEDS ORDERED: PROMETHAZINE HCL 25 MG TAB PO PRN (11:46)
[2016-12-11] MEDS ORDERED: HYDROmorphONE/DILAUDID 1 MG/ML SYR IVP PRN (11:46)
--- NOTE | 2016-12-11 11:55 | GOP ---
[f rep st] OPERATIVE REPORT DATE OF OPERATION: 12/10/2016 SURGEON: Darren Hernandez MD FIELD AGENT: GERONIMO Pinon PREOPERATIVE DIAGNOSIS: Synovial cyst at L4-5 with significant left L5 radiculopathy. POSTOPERATIVE DIAGNOSIS: Synovial cyst at L4-5 with significant left L5 radiculopathy. PROCEDURE PERFORMED: 1. Left L4-5 transforaminal lumbar interbody fusion. 2. Pedicle screw fixation of L4 and L5. 3. Placement of interbody device at L4-L5. 4. Laminectomy with medial facetectomy on the left side at L4 and L5 with complete decompression of the lateral recess and resection of synovial cyst by the L5 pedicle. 5. Use of O-Arm intraoperative computerized tomography navigation for screw placement. 6. Castana of local autograft. 7. Allograft bone morphogenetic protein. 8. Use of the operative microscope. 9. Use of intraoperative somatosensory-evoked potential and motor-evoked potential monitoring. FINDINGS: Significant compression of the L5 nerve root by facet hypertrophy and synovial cyst. INDICATIONS: The patient is a 66-year-old man, who originally presented to the office with left-side d L5 radiculopathy. MRI showed a synovial cyst, which was subsequently aspirated by Radiology. He d id well for a short time, but the cyst has recurred and the patient has had significant pain, and has not been able to walk for 3 or 4 days. He got admitted as an inpatient for pain control. We electe d to proceed with surgery after a long discussion. DESCRIPTION OF PROCEDURE: After informed consent was obtained from the patient, the patient was brou ght to the operating room and a formal timeout was performed identifying the patient by name, medical record number, and date of . Preoperative antibiotics were given. Endotracheal tube was place d and general endotracheal anesthesia was smoothly induced. All appropriate leads were placed for so matosensory-evoked potential and motor-evoked potential monitoring. The patient was then turned in t he prone position on the Terrance table. All appropriate pressure points were padded and checked. At this point, the lumbar region was then prepped and draped in the normal sterile fashion. The O-Ar m was brought into the field, and AP and lateral x-rays were performed confirming the appropriate lev el and marking a level for the incision. 10 cc of 0.25% Marcaine with epinephrine was infiltrated in the skin for hemostasis. Skin incision was then made using a 10 blade and the subcutaneous tissues were dissected using monopo lar electrocautery. The fascia was opened in the midline and the paraspinous muscles were taken down from the L4 and L5 spinous processes. The muscle takedown was taken laterally over the lamina to ex pose the facet joints and pedicle entry sites for L4 and L5. At this point, the stereotactic reference frame was placed on the L5 spinous process and an O-Arm kraig reotactic CT was obtained. This was used to localize the entry points for pedicle screws at L4-5 and this correlated well with the known surface anatomy. We first used the drill and 55.65 tap to make a hole for placement of a 6.5 x 50 mm Medtronic Solera screw on the left side at L4. We then placed, in a similar fashion, a 6.5 x 45 mm screw at L5 on the left. We then used the same procedure to place a 6.5 x 50 mm screw on the right at L4 and a 6.5 x 5 0 mm screw at L5 on the right. All the screws were tested using EMG and all stimulated above the thr eshold. A second O-Arm spin was obtained showing all the screws within the pedicle bone and in good placement. At this point, the high-speed drill was then used to perform a hemilaminectomy on the left side at L4 and the majority of L5. We were able to drill around the L5 pedicle on the left side, exposing a la rge area of bone spurs and facet hypertrophy which were significantly impinging on the left L5 nerve root. We then carefully removed the remainder of the superior facet, which was impinging on the nerv e and could see the synovial cyst beneath. The cyst wall was then resected completely, freeing the L 5 traversing L5 nerve root such that there was no impingement. There was an obvious notch in the ner ve where it had been compressed previously, but this was completely relieved. At this point, the traversing L5 nerve root was retracted slightly medially, giving exposure to the L 4-5 disk space. The disk space was then entered sharply using an 11 blade, and the disk was removed using a combination of pituitary forceps, Kerrison punches, and intra-disk curettes. The cartilagi nous endplates were removed and the endplates were decorticated. The disk space was then sized for a n 8 x 12 x 28 mm Elevate cage. A small piece of BMP was placed into the contralateral side within [facility] disk space and the disk space was partially filled with autograft, which had been locally harveste d. The Elevate cage was then placed within the disk space under fluoroscopy and was advanced towards the midline. It was then expanded to its full expanse of 12 mm providing some lordosis. Once the c age was placed, all bleeding was controlled bipolar electrocautery and Gelfoam. The screw heads were sized for 30 mm titanium rods, which were placed and locked down with the locking caps and finally t orqued. The contralateral L4 and L5 lamina were decorticated using the high-speed drill and then fusion mass was placed over this by placing BMP and a mixture of auto and allograft bone over the lamina. The wo und was then copiously irrigated using bacitracin irrigation. The fascia was closed using interrupte d 0 Vicryl. The deep dermis was closed using interrupted 2-0 Vicryl and the wound was covered with D ermabond. Sterile dressings were placed. The patient was then turned back into the supine position. He was extubated and was transferred to [facility] PACU in stable condition. There were no operative complications. I was scrubbed and present for the entire procedure. Blood loss was 2 50 cc. Fluids and urine outpu t were per the Anesthesia record. All sponge and needle counts were correct at the end of the case. There were no specimens. There were no drains. /[id number]/MODL
--- NOTE | 2016-12-11 13:32 | HOSPPROG ---
Hospitalist Progress Note Assessment/Plan: Assessment: 66-year-old male presenting with synovial cyst resulting in acute lumbar radiculopathy requiring surgery Plan: 1. Synovial cyst with lumbar radiculopathy. Acute, postop day 1 status post TLIF/PSF by Dr. Hernandez -MRI demonstrated L4-L5 with left nerve root impingement -postoperative weight-bearing status and care under the direction neurosurgery -continue pain medications and bowel regimen 2. Eye pain. Acute, most likely corneal abrasion, improved today 3. BPH. Monitor for urine output 4. Nausea. Likely 2/2 pain Rx, severe, rendering his oral intake to very poor - pre-medicate w/ zofran/phenergan - adjusted pain Rx to dilaudid PO/IV, MS Contin, DC the oxys - monitor oral intake closely 5. Headache/dizziness. Likely 2/2 valium and possibly mild vagal response to pain (has a hx of this) - DC valium, if muscle relaxant needed, call hospitalist and I will order robaxin PRN Diet. Regular Prophylaxis. High risk patient, hold on pharmacologic prophylaxis until 48 hours after surgery Code. Full Disposition. Anticipated discharge is 12/12/2016, requiring ongoing inpatient care as his pain mgmt is currently incompletely successful and requires modification given side-effects of Rx Subjective: Patient reports ongoing pain, headache, dizziness, nausea, poor oral intake Objective: Vital Signs Temp Pulse Resp BP Pulse Ox 36.8 C 99 20 132/74 H 96 12/11/16 08:00 12/11/16 08:00 12/11/16 08:00 12/11/16 08:00 12/11/16 08:00 12/10/16 12/11/16 12/12/16 05:59 05:59 05:59 Intake Total 1750 100 Output Total 1700 550 Balance 50 -450 PT 12.8 SEC (12.0-15.0) 12/09/16 12:01 INR 0.97 (0.83-1.16) 12/09/16 12:01 - Time Spent With Patient Time Spent with Patient: greater than 35 minutes Time Spent with Patient: Greater than 35 minutes spent on this patients care, greater than 50% of time spent counseling, educating, and coordinating care regarding the above mentioned plan. - Pending Discharge Pending Discharge Within 24 Hours: Yes Pending Discharge Date: 12/12/16 Pending Discharge Time: 11:00 - Physical Exam Constitutional: uncomfortable, other (Patient is visibly uncomfortable), No not in pain Cardiovascular: No irregularly irregular, No tachycardia, No edema Respiratory: inspiratory crackles (Bilateral bases), No expiratory wheeze, No bronchial breath sounds Gastrointestinal: normoactive bowel sounds, soft, non-tender abdomen, no palpable masses Neurologic: AAOx3 Psychiatric: flat affect ICD10 Worksheet Patient Problems: Problems Problem Status Diagnosed Synovial cyst of lumbar spine Acute
[2016-12-11] MEDS: POLYETHYLENE GLYCOL 3350 17 GM PKT PO PRN (20:46)
[2016-12-11] MEDS: morphINE SR 15 MG TAB PO SCH (20:48)
[2016-12-11] MEDS: CYCLOBENZAPRINE 10 MG TAB PO SCH (22:47)
[2016-12-11] MEDS: HYDROmorphONE/DILAUDID 2 MG TAB PO PRN (23:56)
[2016-12-12 05:08] LABS: % IMMATURE GRANULYOCYTES 0.2 % (0.0-1.1); ABSOLUTE IMMATURE GRANULOCYTES 0.02 10^3/uL (0.00-0.10); ADD DIFF? NO; ADD MORPH? NO; ADD SCAN? NO; ATYPICAL LYMPHOCYTE FLAG 0 (0-99); FRAGMENT RBC FLAG 0 (0-99); HEMATOCRIT 40.6 % (40.0-51.0); HEMOGLOBIN 13.6 g/dL (13.7-17.5); LEFT SHIFT FLG 0 (0-99); LIPEMIA HEMOLYSIS FLAG 80 (0-99); MEAN CELL HEMOGLOBIN CONCENTR. 33.5 g/dL (32.4-36.7); MEAN CELL VOLUME 95.5 fL (81.5-99.8); PLATELET CLUMPS FLAG 20 (0-99); PLATELET COUNT 192 10^3/uL (150-400); RED BLOOD CELL COUNT 4.25 10^6/uL (4.40-6.38); RED CELL DISTRIBUTION WIDTH 11.9 % (11.5-15.2)
[2016-12-12 05:22] LABS: ANION GAP 3 mEq/L (8-16); CALCIUM 8.5 mg/dL (8.5-10.4); CARBON DIOXIDE 29 mEq/l (22-31); CHLORIDE 105 mEq/L (97-110); CREATININE 0.7 mg/dL (0.7-1.3); GLOMERULAR FILTRATION RATE > 60; GLUCOSE 127 mg/dL (70-100); POTASSIUM 4.5 mEq/L (3.5-5.2); SODIUM 137 mEq/L (134-144)
[2016-12-12] MEDS: CYCLOBENZAPRINE 10 MG TAB PO PRN ×2 (05:51→17:50)
[2016-12-12] MEDS: HYDROmorphONE/DILAUDID 2 MG TAB PO PRN (05:51)
[2016-12-12] MEDS: ONDANSETRON DISINTEGRATING 4 MG TAB PO PRN (05:52)
[2016-12-12] MEDS: GABAPENTIN 300 MG CAP PO SCH ×3 (09:16→22:08)
[2016-12-12] MEDS: morphINE SR 15 MG TAB PO SCH ×2 (09:16→20:40)
[2016-12-12] MEDS: FAMOTIDINE 20 MG TAB PO SCH ×2 (09:16→20:40)
[2016-12-12] MEDS: SENNOSIDES/DOCUSATE SODIUM TAB PO SCH ×2 (09:17→20:40)
[2016-12-12] MEDS: MULTIVITAMINS 1 EACH TAB PO SCH (09:17)
[2016-12-12] MEDS: TAMSULOSIN HCL 0.4 MG CAP PO SCH (09:18)
[2016-12-12] MEDS: ACETAMINOPHEN 325 MG TAB PO PRN ×2 (09:34→17:50)
--- NOTE | 2016-12-12 11:23 | SOAPPROG ---
SOAP Progress Note Assessment/Plan: Assessment: 66 yo M POD#2 L4/5 TLIF Plan: neuro: stable some left hamstring pain today, will see how patient progresses with PT/OT PT/OT Scd/natalie/lovenox for dvt prophylaxis please call with neuro changes discussed with Dr Hernandez 12/12/16 11:20 Subjective: continued back pain, pain in left hamstring. no right leg pain. Objective: Vital Signs Temp Pulse Resp BP Pulse Ox 36.8 C 100 18 130/73 H 86 L 12/12/16 07:28 12/12/16 07:28 12/12/16 07:28 12/12/16 07:28 12/12/16 09:45 Laboratory Results 12/12/16 04:25 12/12/16 04:25 12/11/16 12/12/16 12/13/16 05:59 05:59 05:59 Intake Total 1750 1200 Output Total 1700 1200 Balance 50 0 PT 12.8 SEC (12.0-15.0) 12/09/16 12:01 INR 0.97 (0.83-1.16) 12/09/16 12:01 AAOX4, +FC PERRL, EOMI, no facial droop 5/5 + light touch C/D/I ICD10 Worksheet Patient Problems: Problems Problem Status Diagnosed Synovial cyst of lumbar spine Acute
--- NOTE | 2016-12-12 11:58 | DX ---
Lumbar Spine, Two Views 10:38 a.m. Indication: Lumbar spine fusion. Comparison: MRI lumbar spine dated December 09, 2016. Technique: Upright AP and lateral views. Findings: The lumbar spine is anatomically aligned. A new posterior fusion construct extending from L4 to L5 consists of dual posterior rods and bilateral transpedicular screws in L4 and L5. A radiopaq ue device resides in the L4-L5 interbody space. Disk heights are well preserved. No perihardware frac ture or lucency. The atherosclerotic abdominal aorta is normal caliber. Impression: New posterior fusion construct at L4-L5.
[2016-12-12] MEDS ORDERED: MAGNESIUM CITRATE 300 ML BOTTLE PO ONE (14:07)
--- NOTE | 2016-12-12 14:07 | HOSPPROG ---
Hospitalist Progress Note Assessment/Plan: Assessment: 66-year-old male presenting with synovial cyst resulting in acute lumbar radiculopathy requiring surgery Plan: 1. Synovial cyst with lumbar radiculopathy. Acute, postop day 1 status post TLIF/PSF by Dr. Hernandez -MRI demonstrated L4-L5 with left nerve root impingement -postoperative weight-bearing status and care under the direction neurosurgery -continue pain medications and bowel regimen -patient significantly functionally declined post-operatively, and he is requiring asst w/ transfers, rendering him unsafe for DC home at this time -d/w patient and , will get PT reassess and consider SNF w/ rehab vs. Inpt Rehab vs. home health care 2. Eye pain. Acute, most likely corneal abrasion, improved 3. BPH. Monitor for urine output 4. Nausea. Likely 2/2 pain Rx, severe, improved by pre-medicating pain Rx w/ anti-emetics - pre-medicate w/ zofran/phenergan - adjusted pain Rx to dilaudid PO/IV, MS Contin - monitor oral intake closely 5. Headache/dizziness. Likely 2/2 valium and possibly mild vagal response to pain (has a hx of this) - no recurrence off valium - potential caffeine withdraw component, allowed caffeine 6. Constipation. No BMs, start mag citrate and cont bowel regimen Diet. Regular Prophylaxis. High risk patient, hold on pharmacologic prophylaxis until 48 hours after surgery Code. Full Disposition. Anticipated discharge is 12/13/2016, requiring ongoing inpatient care as his functional decline post-op is significant Subjective: This patient is very weak and is having difficulty with transfers, has not had a bowel movement Objective: Vital Signs Temp Pulse Resp BP Pulse Ox 37.0 C 95 16 123/77 H 96 12/12/16 11:31 12/12/16 11:31 12/12/16 11:31 12/12/16 11:31 12/12/16 11:31 Laboratory Results 12/12/16 04:25 12/12/16 04:25 12/11/16 12/12/16 12/13/16 05:59 05:59 05:59 Intake Total 1750 1200 Output Total 1700 1200 Balance 50 0 PT 12.8 SEC (12.0-15.0) 12/09/16 12:01 INR 0.97 (0.83-1.16) 12/09/16 12:01 - Time Spent With Patient Time Spent with Patient: greater than 35 minutes Time Spent with Patient: Greater than 35 minutes spent on this patients care, greater than 50% of time spent counseling, educating, and coordinating care regarding the above mentioned plan. - Pending Discharge Pending Discharge Within 24 Hours: Yes Pending Discharge Date: 12/13/16 Pending Discharge Time: 11:00 - Physical Exam Constitutional: no apparent distress, not in pain, No uncomfortable Cardiovascular: regular rate and rhythym, no murmur, rub, or gallop Respiratory: no respiratory distress, no rales or rhonchi, clear to auscultation , reduced air movement (Bilateral bases) Gastrointestinal: soft, non-tender abdomen, other (full), No normoactive bowel sounds (Hypoactive), No distension Neurologic: AAOx3 Psychiatric: not anxious, not encephalopathic, flat affect (Fatigue), No agitated ICD10 Worksheet Patient Problems: Problems Problem Status Diagnosed Synovial cyst of lumbar spine Acute
[2016-12-12] MEDS: ZOLPIDEM TARTRATE 5 MG TAB PO PRN (22:08)
[2016-12-12] MEDS: CYCLOBENZAPRINE 10 MG TAB PO SCH (22:08)
[2016-12-13] MEDS: ACETAMINOPHEN 325 MG TAB PO PRN ×3 (03:21→17:30)
--- NOTE | 2016-12-13 07:57 | NEUSURGPN ---
Assessment/Plan: Assessment: 66 yo M POD#3 L4/5 TLIF Plan: neuro: stable, doing well, up with PT more yesterday, still has continued nerve pain down right leg- will take time to get better, most likely related to muscle spasms- can increase Gabapentin to 600mg TID PT/OT Scd/natalie/lovenox for dvt prophylaxis Stop NSAIDs due to fusion- DC Celebrex Dispo- Home today with HHC vs Rehab- will await PT recommendations please call with neuro changes Seen with Dr. Hernandez this am Subjective: Patient states pain is much better, felt good getting around with PT. Still has left hamstring pain upon moving. Denies fever, chills. Objective: NAD, AFVSS BLE 5/5= Sensation intact to lt touch Incision c/d/i- glued - Physician Discussed Patient with Dr.: Hernandez Patient Seen by Dr.: Hernandez Neurosurgery Physical Exam - Vitals, I&O, Labs I and O 12/12/16 12/13/16 12/14/16 05:59 05:59 05:59 Intake Total 1200 150 Output Total 1200 925 400 Balance 0 -775 -400 Intake: Oral (ml) 450 150 IV Infused (ml) 750 NS W/ 20 KCl/L 1,000 ml @ 750 75 mls/hr IV CONT TEDDY Rx #:[id number] Output: Urine (ml) 1200 925 400 Urinal 1200 475 400 Catheter 450 Other: Intake Quantity No Sufficient Number of Voids Urinal 1 2 1 Catheter 1 Vital Signs Temp Pulse Resp BP Pulse Ox 36.8 C 91 14 116/73 97 12/13/16 07:48 12/13/16 07:48 12/13/16 07:48 12/13/16 07:48 12/13/16 07:48 Laboratory Results 12/12/16 04:25 12/12/16 04:25 ICD10 Worksheet Patient Problems: Problems Problem Status Diagnosed Synovial cyst of lumbar spine Acute
[2016-12-13] MEDS: FAMOTIDINE 20 MG TAB PO SCH (08:39)
[2016-12-13] MEDS: GABAPENTIN 300 MG CAP PO SCH ×2 (08:40→17:30)
[2016-12-13] MEDS: TAMSULOSIN HCL 0.4 MG CAP PO SCH (08:40)
[2016-12-13] MEDS: MULTIVITAMINS 1 EACH TAB PO SCH (08:40)
[2016-12-13] MEDS: morphINE SR 15 MG TAB PO SCH (08:40)
[2016-12-13] MEDS: SENNOSIDES/DOCUSATE SODIUM TAB PO SCH (08:40)
[2016-12-13] MEDS ORDERED: ENOXAPARIN 40 MG/0.4 ML SYR SC SCH (09:00)
[2016-12-13] MEDS: CYCLOBENZAPRINE 10 MG TAB PO PRN ×2 (09:43→17:30)
[2016-12-13] MEDS: POLYETHYLENE GLYCOL 3350 17 GM PKT PO PRN (10:56)
--- NOTE | 2016-12-13 11:48 | PDIAF ---
- Diagnosis Diagnosis: TLIF, Radiculopathy, Atelectasis Code Status: Full Code - Medication Management Discharge Medications: Medications to Continue on Transfer Multivitamins [Multivitamin (*)] 1 each PO DAILY 12/09/16 [Last Taken Unknown] Tamsulosin HCl [Flomax 0.4 MG (*)] 0.8 mg PO DAILY 12/09/16 [Last Taken Unknown] Acetaminophen [Tylenol 325mg (*)] 325 - 650 mg PO Q4HRS PRN #0 tab 12/13/16 [ Last Taken Unknown] Cyclobenzaprine [Flexeril 10 MG (*)] 10 mg PO HS #60 tab 12/13/16 [Last Taken Unknown] Gabapentin [Neurontin 300 MG (*)] 600 mg PO TID #180 cap 12/13/16 [Last Taken Unknown] HYDROmorphone HCL [Dilaudid 2 mg (*)] 2 - 4 mg PO Q4HRS PRN #90 tab 12/13/16 [ Last Taken Unknown] Hydrocodone/Acetaminophen [Vicodin 5-300 mg Tablet] 1 each PO Q4 PRN #30 tablet 12/13/16 [Last Taken Unknown] Ondansetron Odt [Zofran Odt 4 mg (*)] 4 - 8 mg PO Q4HRS PRN #30 tab 12/13/16 [ Last Taken Unknown] Sennosides/Docusate Sodium [Senokot-S] 1 - 2 tab PO BID #60 tab 12/13/16 [Last Taken Unknown] Discharge Medications: Refer to the Discharge Home Medication list for PRN reason. PICC Care - Routine: N/A - Orders Services needed: Home Care, Physical Therapy Home Care Face to Face: I certify that this patient was under my care and that I had the required [id number] encounter meeting the encounter requirements on the discharge day. My findings support the fact that the patient is homebound as defined in CMS Chapter 7 Medicare Benefits Manual 30.1.1, The condition of the patient is such that there exists a normal inability to leave home and consequently, leaving home would require a considerable and taxing effort. Oxygen: 2L Diet Recommendation: no restrictions on diet Diet Texture: Regular Texture Diet Flowers: Not applicable Activity/Weight Bearing Restrictions: NO bending at the waist, lifting , or twisting more than 5-10 pounds. Wear you brace when up and out of bed, no need to wear in shower. Monitor your incision for signs of infection, drainage, fever, chills. May shower, keep showers short 5-7 minutes, no scrubbing incision, pat dry with towel , keep clean, dry , do not put anything on your incision - Follow Up Care Current Providers and Referrals: Darren Hernandez MD [Medical Doctor] - follow up in 2 weeks Jean Shah MD [Primary Care Provider] - As per Instructions
--- NOTE | 2016-12-13 11:57 | PDDCSUM ---
Discharge Summary Discharge Summary: DISCHARGE SUMMARY FOLLOW-UP ITEMS: Follow up pain control DATE OF ADMISSION: 12/09/2016 DATE OF DISCHARGE: 12/13/2016 DISCHARGE DIAGNOSES: 1. Synovial cyst with lumbar radiculopathy 2. Acute corneal abrasion 3. Chronic BPH 4. Acute nausea 5. Acute headache 6. Acute constipation 7. Atelectasis CONSULTATIONS: No surgery by Dr. Hrenandez PROCEDURES / IMAGING: Lumbar spine MRI demonstrating synovial cyst causing nerve root impingement on left, postoperative lumbar x-ray demonstrating implantation of [employer] CHIEF COMPLAINT: Radiculopathy bilateral hips left greater than right SUBJECTIVE: Patient reports some ongoing left posterior hamstring intermittent pain PHYSICAL EXAM ON DISCHARGE: Systolic blood pressure is 110, heart rate 90, satting 86% on room air at rest, 93% on 2 L nasal cannula, no lower extremity edema, inspiratory crackles in the bilateral bases without any expiratory wheezes or reduced air movement LABS ON DISCHARGE: None HOSPITAL COURSE BY PROBLEM: 1. Synovial cyst with lumbar radiculopathy. Acute on chronic, patient was experiencing significant radiculopathy requiring surgery. He underwent TLIF/ PSF by Dr. Hernandez. Patient's postoperative course was complicated by localized pain as well as some residual neuropathic pain located in his left proximal lower extremity. His gabapentin was up titrated to 600 mg 3 times daily. He did not tolerate MS Contin given its side effects of dizziness. He was placed on oral Dilaudid and tolerated this medication well with premedication for nausea. He will also continue Flexeril at bedtime and will transition to Vicodin from Dilaudid in the outpatient setting. The patient was ambulating safely and doing stairs with physical therapy at time of discharge and he does not require prison facility at this time. 2. Acute corneal abrasion. Patient experienced acute IV pain postoperatively secondary to self-inflicted corneal abrasion. This improved over 24 hours. 3. Chronic BPH. Patient's urine output remained regular, he was continued on his home dosage of Flomax. 4. Acute nausea. Most likely secondary to pain medications with resultant nausea and poor oral intake. This extended patient's hospitalization as he was unable to tolerate oral intake for approximately 24 hours postoperatively. His pain medications were continued with Zofran and Phenergan utilized prior to them to avoid nausea. He was also adjusted from oxycodone to Dilaudid which she tolerated better. He is not having any nausea at time of discharge. 5. Acute headache. Patient experienced acute headache and dizziness most likely secondary to Valium as well as MS Contin. Both these medications were discontinued. He seems to be managing his pain well without them. 6. Acute constipation. Patient experienced constipation postoperatively and this extending his hospitalization as he required very aggressive bowel regimen and laxatives given his history of severe obstipation requiring hospitalization in the past. 7. Atelectasis. The patient experienced postoperative atelectasis evidenced by an SpO2 of 86% on room air at rest. Aggressive measures were taken to alleviate the atelectasis including aggressive incentive spirometry, ambulation , monitoring for any infection. Given that patient remains hypoxic secondary to his atelectasis despite these measures, he will require supplemental oxygen at home to avoid symptomatic hypoxia. His O2 saturation should be reassessed in the outpatient setting. DISCHARGE MEDICATIONS: Please see official discharge medication reconciliation sheet in chart , gabapentin up titrated to 600 mg 3 times daily, Dilaudid 2-4 mg as needed, Flexeril 10 mg at bedtime, Zofran 48 mg as needed, Vicodin 5/300 once a he is able to transition off of Dilaudid. DISCHARGE INSTRUCTIONS: Patient should follow up with Dr. Hernandez in 2 weeks and fall postoperative recommendations. TIME SPENT: Greater than 30 minutes were spent on direct patient care, as well as discharge planning and preparation.
[2016-12-13 13:54] VITALS: BP 127/75; TEMP 98.4
[2016-12-13 14:06] VITALS: PULSE 104; RESP 18; O2SAT 86
[2016-12-13] MEDS: ONDANSETRON DISINTEGRATING 4 MG TAB PO PRN (17:48)
== END 2016-12-13 17:57 | disposition home health service (06) | DRG 460 ==
LOC: EDUNIT# → INTOOBSV 12:39 → F3N 17:02 → OBSVTOIN 12-10 11:46
PROVIDERS: ADMIT Internal Medicine; ATTEND Internal Medicine
PROC: 0SG00AJ Fusion of Lumbar Vertebral Joint with Interbody Fusion Device, Posterior Approach, Anterior Column, Open Approach (ICD-10-PCS; principal; 2016-12-10 08:13)
PROC: 3E0U0GB Introduction of Recombinant Bone Morphogenetic Protein into Joints, Open Approach (ICD-10-PCS; principal; 2016-12-10 08:13)
PROC: 0SG00J1 Fusion of Lumbar Vertebral Joint with Synthetic Substitute, Posterior Approach, Posterior Column, Open Approach (ICD-10-PCS; principal; 2016-12-10 08:13)
PROC: 0QB00ZZ Excision of Lumbar Vertebra, Open Approach (ICD-10-PCS; principal; 2016-12-10 08:13)
PROC: 00NY0ZZ Release Lumbar Spinal Cord, Open Approach (ICD-10-PCS; principal; 2016-12-10 08:13)
DX: M71.38 Other bursal cyst, other site (principal); G54.9 Nerve root and plexus disorder, unspecified; J98.11 Atelectasis; N40.1 Benign prostatic hyperplasia with lower urinary tract symptoms; R33.8 Other retention of urine; K59.00 Constipation, unspecified; R11.0 Nausea; R51 Headache; S05.01XA Injury of conjunctiva and corneal abrasion without foreign body, right eye, initial encounter; X58.XXXA Exposure to other specified factors, initial encounter; Z23 Encounter for immunization
CPT/HCPCS: 96374; 97116-GP; 97161-GP; 97165-GO; 97530-GO; 97530-GP; 97535-GO; A9585; C1713; C1762; G0008; G0378; G8978-GP-CK; G8979-GP-CJ; G8987-GO-CI; G8987-GO-CK; G8988-GO-CH; G8989-GO-CI; J0690; J1170; J1650; J2250; J2274; J2405; J2550; J2704; J2710; J2765; J3010; P9041

== ENCOUNTER → 2017-01-24 | Outpatient (CLI) | payer OTHER, BC | LOC: BMCIMAGING 08:09 | PROVIDERS: ATTEND Neurological Surgery | DX: Z98.1 Arthrodesis status (principal); M51.36 Other intervertebral disc degeneration, lumbar region ==

== ENCOUNTER 2017-02-04 01:42 | Emergency (ER) | payer OTHER ==
[2017-02-04] MEDS ORDERED: NS 1,000 ML IV ONE (01:46)
--- NOTE | 2017-02-04 02:06 | CPEKG ---
Heart Rate: 99 RR Interval: 606 P-R Interval: 180 QRSD Interval: 92 QT Interval: 376 QTC Interval: 483 P Banks: 51 QRS Banks: -54 T Wave Banks: 44 EKG Severity - ABNORMAL ECG - EKG Impression: SINUS RHYTHM EKG Impression: LEFT ANTERIOR FASCICULAR BLOCK EKG Impression: CONSIDER ANTEROSEPTAL INFARCT EKG Impression: BORDERLINE PROLONGED QT INTERVAL Electronically Signed By: Hal Pimentel 04-Feb-2017 02:14:45
--- NOTE | 2017-02-04 02:07 | PDCONSULT ---
[employer] Processing Supervisor Note: [facility] Demographics Consult Type Acute Stroke First Name Justnio Last Name Nivia Date of 1950 Age: 66 Gender Male Time of initial page (): 02/04/2017 01:48 Time of return call (): 02/04/2017 01:54 Time Ready to Initiate Telemed Consult (): 02/04/2017 01:56 HPI Additional History (Free Text): 66yo man LKN 10PM by his . He is not speaking properly. EMS was called. He is following most commands. He had a marijuana cookie around 10PM, and started with altered mentation after ingestion. He only states that he is thirsty. [facility]-- Past Medical History: Hypertension, lumbar fusion Social History: marijuana Exam SBP: 151 DBP: 89 NIHSS Time (): 02/04/2017 01:59 LOC 1a: 2 = Not alert; requires repeated stimulation to attend, or is obtunded and requires strong or painful stimulation to make movements LOC 1b: 2 = Answers neither questions correctly LOC Commands: 2 = Performs neither task correctly Best Gaze: 0 = Normal Visual: 0 = No visual loss Facial Palsy 0 = Normal symmetrical movements Motor Arm L: 0 = No drift; limb holds 90 (or 45) degrees for full 10 seconds Motor Arm R: 0 = No drift; limb holds 90 (or 45) degrees for full 10 seconds Motor Leg L: 0 = No drift; leg holds 30-degree position for full 5 seconds Motor Leg R: 0 = No drift; leg holds 30-degree position for full 5 seconds Limb Ataxia 0 = Absent Sensory: 0 = Normal; no sensory loss Best Language: 0 = No aphasia; normal Dysarthria: 2 = Severe dysarthria; patient's speech is so slurred as to be unintelligible Extinction + Inattention: 0 = No abnormality NIHSS: [address]: no bleed Assessment Assessment: Altered Mental Status, doubt stroke, as he has no facial and is lethargic Plan Lytic/Intervention: NOT IV or IA candidate, doubt stroke, likely due to THC Target Blood Pressure: SBP < 160 Labs Ammonia, B 12, Comprehensive metabolic panel, HgbA1c, LFT, Lipid Panel, TSH, UDS Imaging CTA Head, CTA Neck, MRI brain without Diagnostic test echocardiogram without bubble Therapy/Eval NPO until cleared by swallow evaluation, PT/OT, Speech/Swallow therapy consult Other LDL goal less than 70, permissive HTN Disposition admit
[2017-02-04 02:09] LABS: % IMMATURE GRANULYOCYTES 0.4 % (0.0-1.1); ABSOLUTE IMMATURE GRANULOCYTES 0.03 10^3/uL (0.00-0.10); ADD DIFF? NO; ADD MORPH? NO; ADD SCAN? NO; ATYPICAL LYMPHOCYTE FLAG 0 (0-99); FRAGMENT RBC FLAG 0 (0-99); HEMOGLOBIN 15.1 g/dL (13.7-17.5); LEFT SHIFT FLG 0 (0-99); LIPEMIA HEMOLYSIS FLAG 80 (0-99); MEAN CELL HEMOGLOBIN 31.9 pg (27.9-34.1); MEAN CELL HEMOGLOBIN CONCENTR. 33.6 g/dL (32.4-36.7); MEAN CELL VOLUME 94.9 fL (81.5-99.8); PLATELET CLUMPS FLAG 10 (0-99); PLATELET COUNT 298 10^3/uL (150-400); RED BLOOD CELL COUNT 4.74 10^6/uL (4.40-6.38); RED CELL DISTRIBUTION WIDTH 12.6 % (11.5-15.2)
[2017-02-04] MEDS ORDERED: IOPAMIDOL (ISOVUE 370) 100 ML BTL IV ONE (02:09)
--- NOTE | 2017-02-04 02:10 | EDPHY ---
H & P HPI/ROS: CHIEF COMPLAINT: Stroke alert HISTORY OF PRESENT ILLNESS: The patient is a 66-year-old who is brought in by EMS for confusion. They report that someone was talking to him on the phone said that he was not making sense. They called 911. Police report that he was last seen normal by his at 10:00 p.m. while they were eating a marijuana cookie. About 35 minutes ago is when EMS was called. He has a history of hypertension. His blood glucose by EMS is 130. He is following commands but is completely aphasic. He has said a couple nonsensical words to paramedics but none to me. He has no pronator drift. According to the medical record he has had a lumbar fusion December 10 this year. REVIEW OF SYSTEMS: Unable to obtain secondary to condition EXAM: GENERAL: Frustrated, dysarthric HEAD: Atraumatic, normocephalic. EYES: Pupils equal round and reactive to light, extraocular movements intact, sclera anicteric, conjunctiva are normal. ENT: TMs normal, nares patent, oropharynx clear without exudates. Moist mucous membranes. NECK: Normal range of motion, supple without lymphadenopathy or JVD. LUNGS: Breath sounds clear to auscultation bilaterally and equal. No wheezes rales or rhonchi. HEART: Regular rate and rhythm without murmurs, rubs or gallops. ABDOMEN: Soft, nontender, normoactive bowel sounds. No guarding, no rebound. No masses appreciated. BACK: No CVA tenderness, no spinal tenderness, step-offs or deformities EXTREMITIES: Normal range of motion, no pitting or edema. No clubbing or cyanosis. NEUROLOGICAL: Poor cooperation, no pronator drift. Will shake head yes and no to questioning. Will not speak. Will wiggle toes. He is alert, am getting an NIH stroke scale of 11 or greater but it is difficult to assess because he is unable or unwilling to cooperate with most of the exam. No visible facial droop. PSYCH: Unable to assess SKIN: Warm, dry, normal turgor, no visible rashes or lesions. Source: Family, EMS, Old records Exam Limitations: Clinical condition - Personal History Tetanus Vaccine Date: >10 YRS - Medical/Surgical History Hx Asthma: No Hx Chronic Respiratory Disease: No Hx Diabetes: No Hx Cardiac Disease: No Hx Renal Disease: No Hx Cirrhosis: No Hx Alcoholism: No Hx HIV/AIDS: No Hx Splenectomy or Spleen Trauma: No Other PMH: vasovagal syndrome w/pain. BPH - Family History Significant Family History: No pertinent family hx - Social History Smoking Status: Never smoked Alcohol Use: Sober Drug Use: Marijuana Constitutional: Initial Vital Signs Heart Rate 128 H 02/04/17 01:46 Respiratory Rate 24 H 02/04/17 01:46 Blood Pressure 151/89 H 02/04/17 01:46 O2 Sat (%) 94 02/04/17 01:46 O2 Delivery Mode Room Air O2 (L/minute) 2 Allergies/Adverse Reactions: Penicillins Allergy (Mild, Verified 02/04/17 01:58) Rash Home Medications: Medication Instructions Recorded Multivitamins [Multivitamin (*)] 1 each PO DAILY 12/09/16 Tamsulosin HCl [Flomax 0.4 MG (*)] 0.8 mg PO DAILY 12/09/16 Acetaminophen [Tylenol 325mg (*)] 325 - 650 mg PO Q4HRS PRN #0 tab 12/13/16 Cyclobenzaprine [Flexeril 10 MG 10 mg PO HS #60 tab 12/13/16 (*)] Gabapentin [Neurontin 300 MG (*)] 600 mg PO TID #180 cap 12/13/16 HYDROmorphone HCL [Dilaudid 2 mg 2 - 4 mg PO Q4HRS PRN #90 tab 12/13/16 (*)] Hydrocodone/Acetaminophen [Vicodin 1 each PO Q4 PRN #30 tablet 12/13/16 5-300 mg Tablet] Ondansetron Odt [Zofran Odt 4 mg 4 - 8 mg PO Q4HRS PRN #30 tab 12/13/16 (*)] Sennosides/Docusate Sodium 1 - 2 tab PO BID #60 tab 12/13/16 [Senokot-S] Medical Decision Making - Diagnostics EKG Interpretation: An EKG obtained and was read and documented in trace view. Please see trace view for full reading and report. Sinus rhythm, left anterior fascicular block , similar to previous Imaging: Results: CT scan of the head was obtained. The results of the study are negative. The study was read by Dr. Roberto Mcnamara. I viewed the images myself on the PACS system. ED Course/Re-evaluation: I called a stroke alert on patient arrival for aphasia. He was able to cooperate with my initial exam and follow commands. The patient was very uncooperative with neurologist from [place]. He would not raise his arms or feet. It is hard to tell if he is worsening or fatigued or uncooperative. Lab work thus far is normal. Will obtain CT angio. Dr Garcia from Neurology does not recommend tPA. He asks that we call back if there is a large vessel clot seen on CT angio. 2:40 a.m. the patient is doing much better. He is talking in complete sentences and moving all extremities. He states that he drink bourbon, a half of a extra strong marijuana cookie and some leftover spaghetti sauce that may have been bad. I am beginning to suspect that this is primarily a marijuana overdose. 4:00 a.m. the patient is doing completely better. He is speaking normally. He is moving all extremities. We will continue to observe. His son is at the bedside. 5:10 a.m. the patient is ambulating. He is completely normal. The patient and his son feel that this is most likely due to eating too much to the marijuana Brownie. I agree. Will discharge him at this time. The patient is making jokes. Differential Diagnosis: Partial list of the Differential diagnosis considered include but were not limited to; CVA, intoxication, infection, head injury, hemorrhage and although unlikely based on the history and physical exam, I also considered fracture, electrolyte abnormality, seizure. I discussed these differential diagnoses and the plan with the patient as well as the usual and expected course. The patient understands that the diagnosis is provisional and that in medicine we are not always correct and that further workup is often warranted. Usual and customary warnings were given. All of the patient's questions were answered. The patient was instructed to return to the emergency department should the symptoms at all worsen or return, otherwise to followup with the physician as we discussed. - Data Points Laboratory Results: Laboratory Results 02/04/17 01:00 02/04/17 01:00 02/04/17 02/04/17 02/04/17 01:56 01:00 01:00 WBC RBC Hgb POC Hgb 15.6 gm/dL gm/dL (14.5-17.3) Hct POC Hct 46 % % (42.8-50.6) MCV MCH MCHC RDW Plt Count MPV Neut % (Auto) Lymph % (Auto) Spencer % (Auto) Eos % (Auto) Baso % (Auto) Nucleat RBC Rel Count Absolute Neuts (auto) Absolute Lymphs (auto) Absolute Monos (auto) Absolute Eos (auto) Absolute Basos (auto) Absolute Nucleated RBC Immature Gran % Immature Gran # PT 13.2 SEC SEC (12.0-15.0) INR 1.01 (0.83-1.16) POC Sodium 143 mEq/L mEq/L (134-144) Sodium 141 mEq/L mEq/L (134-144) POC Potassium 3.8 mEq/L mEq/L (3.3-5.0) Potassium 4.2 mEq/L mEq/L (3.5-5.2) POC Chloride 106 mEq/L mEq/L (96-108) Chloride 109 mEq/L mEq/L (97-110) Carbon Dioxide 23 mEq/l mEq/l (22-31) Anion Gap 9 mEq/L mEq/L (8-16) POC BUN 26 mg/dL H mg/dL (7-23) BUN 26 mg/dL H mg/dL (7-23) Creatinine 0.9 mg/dL mg/dL (0.7-1.3) POC Creatinine 1.0 mg/dL mg/dL (0.8-1.5) Estimated GFR > 60 Glucose 163 mg/dL H mg/dL (70-100) POC Glucose 168 mg/dL H mg/dL (70-100) Calcium 9.5 mg/dL mg/dL (8.5-10.4) 02/04/17 01:00 WBC 8.17 10^3/uL 10^3/uL (3.80-9.50) RBC 4.74 10^6/uL 10^6/uL (4.40-6.38) Hgb 15.1 g/dL g/dL (13.7-17.5) POC Hgb Hct 45.0 % % (40.0-51.0) POC Hct MCV 94.9 fL fL (81.5-99.8) MCH 31.9 pg pg (27.9-34.1) MCHC 33.6 g/dL g/dL (32.4-36.7) RDW 12.6 % % (11.5-15.2) Plt Count 298 10^3/uL 10^3/uL (150-400) MPV 10.0 fL fL (8.7-11.7) Neut % (Auto) 62.0 % % (39.3-74.2) Lymph % (Auto) 26.3 % % (15.0-45.0) Spencer % (Auto) 9.5 % % (4.5-13.0) Eos % (Auto) 1.3 % % (0.6-7.6) Baso % (Auto) 0.5 % % (0.3-1.7) Nucleat RBC Rel Count 0.0 % % (0.0-0.2) Absolute Neuts (auto) 5.06 10^3/uL 10^3/uL (1.70-6.50) Absolute Lymphs (auto) 2.15 10^3/uL 10^3/uL (1.00-3.00) Absolute Monos (auto) 0.78 10^3/uL 10^3/uL (0.30-0.80) Absolute Eos (auto) 0.11 10^3/uL 10^3/uL (0.03-0.40) Absolute Basos (auto) 0.04 10^3/uL 10^3/uL (0.02-0.10) Absolute Nucleated RBC 0.00 10^3/uL 10^3/uL (0-0.01) Immature Gran % 0.4 % % (0.0-1.1) Immature Gran # 0.03 10^3/uL 10^3/uL (0.00-0.10) PT INR POC Sodium Sodium POC Potassium Potassium POC Chloride Chloride Carbon Dioxide Anion Gap POC BUN BUN Creatinine POC Creatinine Estimated GFR Glucose POC Glucose Calcium Medications Given: Discontinued Medications Sodium Chloride (Ns) 1,000 mls @ 500 mls/hr IV EDNOW ONE Stop: 02/04/17 03:45 Last Admin: 02/04/17 02:35 Dose: 1,000 mls Ondansetron HCl (Zofran) 4 mg IVP EDNOW ONE Stop: 02/04/17 02:21 Last Admin: 02/04/17 02:21 Dose: 4 mg Point of Care Test Results: 02/04/17 01:56 POC Sodium 143 POC Potassium 3.8 POC Chloride 106 POC BUN 26 H POC Creatinine 1.0 POC Glucose 168 H Departure - Departure Disposition: Home, Routine, Self-Care Clinical Impression: Cannabis intoxication delirium Condition: Fair Instructions: Acute Delirium (ED), Cannabis Abuse (ED) Referrals: Jean Shah MD [Primary Care Provider] - As per Instructions
[2017-02-04 02:14] VITALS: TEMP 97.5
[2017-02-04 02:19] LABS: ANION GAP 9 mEq/L (8-16); CALCIUM 9.5 mg/dL (8.5-10.4); CARBON DIOXIDE 23 mEq/l (22-31); CHLORIDE 109 mEq/L (97-110); CREATININE 0.9 mg/dL (0.7-1.3); GLOMERULAR FILTRATION RATE > 60; GLUCOSE 163 mg/dL (70-100); POTASSIUM 4.2 mEq/L (3.5-5.2); SODIUM 141 mEq/L (134-144)
[2017-02-04] MEDS ORDERED: ONDANSETRON 4 MG/2 ML VIAL ONE (02:19)
[2017-02-04] MEDS ORDERED: ONDANSETRON 4 MG/2 ML VIAL IVP ONE (02:20)
[2017-02-04 02:21] LABS: INR 1.01 (0.83-1.16); PROTIME(PATIENT) 13.2 SEC (12.0-15.0)
[2017-02-04 04:36] VITALS: O2SAT 96
[2017-02-04 05:13] VITALS: BP 114/66; PULSE 104; RESP 16
== END 2017-02-04 05:21 | disposition home or self-care (01) ==
LOC: EDUNIT#
DX: F12.921 Cannabis use, unspecified with intoxication delirium (principal)
CPT/HCPCS: 70450; 70496; 70498; 71010; 93005; 96361; 96374; 99285; J2405; Q9967; 82947-QW

== ENCOUNTER → 2017-03-28 | Outpatient (CLI) | payer OTHER | LOC: BMCIMAGING 07:20 | PROVIDERS: ATTEND Physician Assistant | DX: Z09 Encounter for follow-up examination after completed treatment for conditions other than malignant neoplasm (principal); Z98.1 Arthrodesis status ==

== ENCOUNTER → 2017-04-17 | Outpatient (CLI) | payer OTHER | LOC: BMCIMAGING 15:44 | PROVIDERS: ATTEND Podiatrist Foot & Ankle Surgery | DX: M79.671 Pain in right foot (principal); M79.672 Pain in left foot ==

== ENCOUNTER → 2017-07-04 | Outpatient (CLI) | payer OTHER | LOC: BMCIMAGING 08:10 | PROVIDERS: ATTEND Physician Assistant | DX: Z98.1 Arthrodesis status (principal) ==

== ENCOUNTER → 2017-12-18 | Outpatient (CLI) | payer OTHER | LOC: BMCIMAGING 10:10 | PROVIDERS: ATTEND Physician Assistant | DX: Z09 Encounter for follow-up examination after completed treatment for conditions other than malignant neoplasm (principal); Z98.1 Arthrodesis status ==

== ENCOUNTER 2019-04-07 07:14 | Emergency (ER) | payer OTHER ==
[2019-04-07] MEDS ORDERED: NS 1,000 ML IV ONE (07:43)
[2019-04-07] MEDS ORDERED: ONDANSETRON 4 MG/2 ML VIAL IVP ONE (07:48)
--- NOTE | 2019-04-07 07:51 | EDPHY ---
H & P Stated Complaint: right flank pain, Time Seen by Provider: 04/07/19 07:44 HPI/ROS: CHIEF COMPLAINT: Right flank pain HISTORY OF PRESENT ILLNESS: 69-year-old male presents with right flank pain. Sudden onset of severe right flank pain at 5:30 a.m.. The pain has waxed and waned and is currently moderate. Associated with nausea. No vomiting and no urinary symptoms. No alleviating or aggravating factors. History of renal stones seen on prior CT scan. REVIEW OF SYSTEMS: complete 10 point ROS reviewed and is negative except for the noted elements in the HPI Source: Patient - Personal History Current Tetanus Diphtheria and Acellular Pertussis (TDAP): Yes Tetanus Vaccine Date: >10 YRS - Medical/Surgical History Hx Asthma: No Hx Chronic Respiratory Disease: No Hx Diabetes: No Hx Cardiac Disease: No Hx Renal Disease: No Hx Cirrhosis: No Hx Alcoholism: No Hx HIV/AIDS: No Hx Splenectomy or Spleen Trauma: No Other PMH: vasovagal syndrome w/pain. BPH. L4- l5 fusion - Social History Smoking Status: Never smoked Alcohol Use: Sober Drug Use: None - Physical Exam Exam: General Appearance: Alert, pleasant Eyes: Pupils equal and round, no conjunctival pallor or injection ENT, Mouth: Mucous membranes moist Neck: Normal inspection Respiratory: Lungs are clear to auscultation Cardiovascular: Regular rate and rhythm Gastrointestinal: Abdomen is soft and nontender Back: No CVAT Neurological: A&O, nonfocal, normal gait Skin: Warm and dry Extremities: Normal inspection Psychiatric: Mood and affect normal Constitutional: Initial Vital Signs Temperature (C) 36.5 C 04/07/19 07:19 Heart Rate 54 L 04/07/19 07:19 Respiratory Rate 18 04/07/19 07:19 Blood Pressure 117/70 04/07/19 07:19 O2 Sat (%) 94 04/07/19 07:19 O2 Delivery Mode Room Air Allergies/Adverse Reactions: Penicillins Allergy (Mild, Verified 02/04/17 01:58) Rash Home Medications: Medication Instructions Recorded Multivitamins [Multivitamin (*)] 1 each PO DAILY 12/09/16 Acetaminophen [Tylenol 325mg (*)] 325 - 650 mg PO Q4HRS PRN #0 tab 12/13/16 Cyclobenzaprine [Flexeril 10 MG 10 mg PO HS #60 tab 12/13/16 (*)] Aspirin 04/07/19 Ondansetron Odt [Zofran Odt 4 mg 4 mg PO Q4 PRN #10 tab 04/07/19 (*)] TOVIAZ 04/07/19 oxyCODONE/APAP 5/325 [Percocet 1 tab PO Q4 PRN #15 tab 04/07/19 5/325 (*)] Medical Decision Making - Diagnostics Imaging Results: CT abd/pelvis: 2mm rt distal ureteral calculus, calculus in bladder Imaging: Discussed imaging studies w/ stoker erector and servicer Radiologist ED Course/Re-evaluation: This pt presents with rt flank pain, most c/w renal colic. Morphine/Zofran IV given for pain and nausea with relief. CT abd/pelvis reveals a ureteral calculus, results d/w pt and . Toradol 15mg IV given with some relief, followed by IV Dilaudid. After some obs in ED, pt feels much better and wants to go home. Abd soft, NT. Pt unable to privde UA, doub UTI. Warning signs discussed. Differential Diagnosis: includes though not limited to UTI, AAA, appy, diverticulitis, SBO, bowel perforation - Data Points Laboratory Results: Laboratory Results 04/07/19 07:33 04/07/19 07:33 Medications Given: Discontinued Medications Hydromorphone HCl (Dilaudid) 0.5 mg IVP EDNOW ONE Stop: 04/07/19 09:37 Last Admin: 04/07/19 09:42 Dose: 0.5 mg Sodium Chloride (Ns) 1,000 mls @ 0 mls/hr IV EDNOW ONE; Wide Open PRN Reason: Protocol Stop: 04/07/19 07:44 Last Admin: 04/07/19 08:08 Dose: 1,000 mls Ketorolac Tromethamine (Toradol) 15 mg IVP EDNOW ONE Stop: 04/07/19 08:24 Last Admin: 04/07/19 08:48 Dose: 15 mg Morphine Sulfate (Morphine) 6 mg IVP EDNOW ONE Stop: 04/07/19 07:49 Last Admin: 04/07/19 08:08 Dose: 6 mg Ondansetron HCl (Zofran) 4 mg IVP EDNOW ONE Stop: 04/07/19 07:49 Last Admin: 04/07/19 08:08 Dose: 4 mg Departure - Departure Disposition: Home, Routine, Self-Care Clinical Impression: Kidney stone on right side Condition: Good Instructions: Kidney Stones (ED), Renal Colic (ED) Additional Instructions: Take Ibuprofen or Motrin 600 mg by mouth three times a day. Percocet as needed for severe pain Zofran as needed for nausea Strain urine as directed Return to the Emergency Department for intractable pain, fever or vomiting. Followup with the urologist you have been referred to for unimproved symptoms. Referrals: Jean Shah MD [Primary Care Provider] - As per Instructions Prescriptions: Ondansetron Odt [Zofran Odt 4 mg (*)] 4 mg PO Q4 PRN #10 tab PRN Reason: Nausea oxyCODONE/APAP 5/325 [Percocet 5/325 (*)] 1 tab PO Q4 PRN #15 tab PRN Reason: pain
[2019-04-07 08:07] LABS: PLATELET COUNT 304 10^3/uL (150-400)
[2019-04-07] MEDS ORDERED: KETOROLAC 15 MG/1 ML SDV IVP ONE (08:23)
[2019-04-07] MEDS ORDERED: HYDROmorphONE/DILAUDID 2 MG/ML INJ IVP ONE (09:36)
[2019-04-07 10:43] VITALS: BP 115/76
== END 2019-04-07 10:52 | disposition home or self-care (01) ==
DX: N20.0 Calculus of kidney (principal); E86.9 Volume depletion, unspecified
CPT/HCPCS: 74176; 96361; 96374; 96375; 99284; J1170; J1885; J2270; J2405